=== PATIENT | male | born 1975 | race Caucasian/White ===

== ENCOUNTER 2016-10-13 16:49 | Inpatient (IN) | payer MEDICAID ==
[~2016-10-13] VITALS: Ht 152.4 cm; Wt 65.8 kg
[~2016-10-13 16:49] MED LIST: ALBU2.5V13 HHN; BISA10SU61 PR; DOCU50LI GT; HEPA50004 SUBCUT; IPRA0.2S18 HHN; MAGN400O6 GT; METO25TA20 GT; MULT473L GT; NA P133E PR; TRIH2TAB5 GT; VIT500LI GT
--- NOTE | 2016-10-13 17:00 | NUR ---
PT BIB AMBULANCE FROM [facility] . ON VENT TOLERATED. SUCTION TOLERATED. ON MONITOR VSS. PT GRIMACING ON RT FEMUR. PT PLACED ON SAFETY MEASURES AND COMFORTABLE.
--- NOTE | 2016-10-13 17:05 | NUR ---
PT PLACED INTO [address] [facility] VENT VIA TRACH SIZE 7 PORTEX WITH CUFFED. BREATH SOUNDS RHONCHI BILATERAL, SXN SMALL AMNT PALE YELLOW THICK SECRETIONS. VENT PARAMETERS BELOW SET PER EMT: AC 16 VT 550 FIO2 40% PEEP +5 AMBUBAG @ HOB Addendum: 10/13/16 at 1717 by BRITTANY MULLIGAN RT Amended: Links added.
[2016-10-13] MEDS ORDERED: IV NS 0.9% 1,000 ML BAG IV ONE (17:30)
[2016-10-13] MEDS ORDERED: MORPHINE SULFATE INJ 2 MG/ML DISP.SYRIN IV ONE (17:30)
[2016-10-13] MEDS ORDERED: ASCO500S2 GT (17:39)
[2016-10-13] MEDS ORDERED: CALC-108 GT (17:39)
[2016-10-13] MEDS ORDERED: IPRA0.2S9 IH (17:39)
[2016-10-13] MEDS ORDERED: CHLO15MO2 MM (17:39)
[2016-10-13] MEDS ORDERED: LEVO750T21 GT (17:39)
[2016-10-13] MEDS ORDERED: AMIN30LI4 GT (17:39)
[2016-10-13] MEDS ORDERED: ACID1TAB12 GT (17:39)
[2016-10-13] MEDS ORDERED: FERR220S2 GT (17:39)
[2016-10-13] MEDS ORDERED: LEVE100S GT (17:39)
[2016-10-13] MEDS ORDERED: LACT-96 GT (17:39)
[2016-10-13] MEDS ORDERED: CYAN500T4 GT (17:39)
[2016-10-13] MEDS ORDERED: ENOX40DI SQ (17:39)
[2016-10-13] MEDS ORDERED: METO5SOL2 GT (17:39)
[2016-10-13] MEDS ORDERED: ACET650S26 GT (17:39)
[2016-10-13] MEDS ORDERED: LORA0.5T GT (17:39)
[2016-10-13] MEDS ORDERED: ESOM40CA GT (17:39)
[2016-10-13] MEDS ORDERED: EPOE1VIA6 SQ (17:39)
[2016-10-13 17:42] LABS: EOSINOPHILS # (AUTO) 0.2 /CMM (0.0-0.7)
[2016-10-13 17:44] LABS: BASOPHILS % (AUTO) 0.5 % (0.0-2.0); CALCIUM, SERUM 9.5 mg/dL (8.5-10.1); CARBON DIOXIDE 28 mmol/L (21-32); CHLORIDE 98 mmol/L (98-107); CREATININE 0.7 mg/dL (0.6-1.3); EOSINOPHILS % (AUTO) 2.7 % (0.0-6.0); GFR 124 mL/min (>60); GLUCOSE 107 mg/dL (74-106); HEMATOCRIT 37 % (39-51); HEMOGLOBIN 11.9 g/dL (13.5-17.5); LYMPHOCYTES % (AUTO) 17.3 % (20.0-44.0); MEAN CORPUSCULAR HEMOGLOBIN 32 PG (26.0-33.0); MEAN CORPUSCULAR HGB CONC 32 g/dl (31.0-36.0); MEAN CORPUSCULAR VOLUME 98 fL (80-96); MONOCYTES # (AUTO) 0.3 /CMM (0.1-1.30); MONOCYTES % (AUTO) 5.2 % (2.0-12.0); NEUTROPHILS # (AUTO) 4.3 /CMM (1.8-8.9); NEUTROPHILS % (AUTO) 74.3 % (43.0-81.0); PLATELET COUNT (AUTO) 190 /CMM (150-450); POTASSIUM 4.1 mmol/L (3.5-5.1); RDW COEFFICIENT OF VARIATION 13.8 (11.5-15.0); RED BLOOD CELL COUNT(AUTO) 3.77 MIL/uL (4.5-6.0); SODIUM SERUM 134 mmol/L (136-145); UREA NITROGEN, BLOOD 21 mg/dL (7-18); WHITE BLOOD COUNT (AUTO) 5.8 K/uL (4.3-11.0)
[2016-10-13 17:50] LABS: ALANINE AMINOTRANSFERASE 20 U/L (12-78); ALBUMIN 3.7 g/dL (3.4-5.0); ALKALINE PHOSPHATASE 140 U/L (46-116); ASPARTATE AMINOTRANSFERASE 25 U/L (15-37); BILIRUBIN,DIRECT 0.2 mg/dL (0.0-0.2); BILIRUBIN,TOTAL 0.6 mg/dL (0.2-1.0); TOTAL PROTEIN, SERUM 8.7 g/dL (6.4-8.2)
[2016-10-13 17:52] LABS: TROPONIN I < 0.017 ng/mL (0.00-0.056)
[2016-10-13 18:13] LABS: INR 1.07 (0.87-1.13); PROTHROMBIN TIME 11.2 SECS (9.5-12.7)
--- NOTE | 2016-10-13 18:30 | NUR ---
IV ACCESS ABD #[id number]
[2016-10-13] MEDS ORDERED: IV NS 0.9% 1,000 ML ONE (18:31)
[2016-10-13] MEDS ORDERED: IV SET PRIMARY PUMP SET 1 EA INFUS.SET MC ONE (18:31)
[2016-10-13] MEDS ORDERED: MORPHINE SULFATE INJ 2 MG/ML DISP.SYRIN ONE (18:32)
[2016-10-13] MEDS ORDERED: MORPHINE SULFATE INJ 4 MG/ML DISP.SYRIN ONE (18:32)
--- NOTE | 2016-10-13 18:33 | NUR ---
CALLED [facility] TO READ XRAY
--- NOTE | 2016-10-13 18:50 | NUR ---
KALINA VALDOVINOS, DARIAN DE LA O STAFF MINE WARFARE OFFICER
[2016-10-13 18:52] LABS: BAND % (MANUAL) 2 % (0.0-5.0); LYMPHOCYTES % (MANUAL) 18 % (16-48); MONOCYTES % (MANUAL) 1 % (0-11.0); NEUTROPHILS % (MANUAL) 77 (42-76); PLATELET ESTIMATE ADEQUATE
--- NOTE | 2016-10-13 18:58 | NUR ---
CALLED NURSING SUP. FOR TELE BED
--- NOTE | 2016-10-13 19:02 | NUR ---
DEYA VALDOVINOS, PRICE ALLRED NP GENERAL INTERNIST
--- NOTE | 2016-10-13 19:06 | NUR ---
PT VITALS WNL NO S/SX OF PAIN. MONITOR IN PLACE. REPORT GIVEN TO CRYPTOLOGIC TECHNICIAN NURSE.
--- NOTE | 2016-10-13 19:13 | NUR ---
CALLED TO UPGRADE ROOM TO ASAEL
--- NOTE | 2016-10-13 19:24 | NUR ---
PT LEFT FOR CT WITH RT, KETTLE FIRER X2 AND MYSELF.
--- NOTE | 2016-10-13 19:29 | NUR ---
PT IS IN CT.
[2016-10-13 19:45] VITALS: BP 123/57
--- NOTE | 2016-10-13 19:48 | NUR ---
BOOGIE CHE AT THE BEDSIDE FOR EVAL OF PT.
[2016-10-13 19:55] LABS: REACTIVE LYMPHOCYTES 2 % (0-0)
--- NOTE | 2016-10-13 19:56 | NUR ---
PT HAVING ECHO DONE BEFORE CT SCAN.
--- NOTE | 2016-10-13 20:05 | NUR ---
PT ASSIGNED TO ASAEL BED 115.
--- NOTE | 2016-10-13 20:12 | NUR ---
CALLING REPORT TO TELE NURSE.
--- NOTE | 2016-10-13 20:25 | NUR ---
PT LEFT FOR CT VIA GURNEY WITH EMT, MYSELF, RT AND PROVIDER RELATIONS ADVOCATE. BAGGING IN PROGRESS.
[2016-10-13 20:30] VITALS: BP 121/83
[2016-10-13 20:40] VITALS: BP 121/83
--- NOTE | 2016-10-13 20:40 | NUR ---
ASAEL RN INITIAL NOTES RECEIVED PATIENT FROM ER. REPORT RECEIVED FROM ER NURSE SHAY. PATIENT AWAKE, NON-VERBAL, NO TRACKING. NO S/S OF PAIN OR DISCOMFORT. NOTED WITH INVOLUNTARY HEAD AND ARMS MOVEMENT. WITH VENT SETTINGS AC 16, TV 550, FIO2 40%, PEEP 5. TRACH C/D/I. NO RESPIRATORY DISTRESS NOTED. SPO2 98%. ON TELE MONITOR SINUS TACH 102. WITH GT PATENT, INTACT, IN PLACE. NOTED WITH BILATERAL FOOT DROP. BILATERAL PEDAL PULSES PALPABLE. WITH RIGHT UPPER THIGH SWELLING NOTED WITH INTERNAL ROTATION. RECEIVED PATIENT WITH NS RUNNING BY GRAVITY. IV LINE ON RIGHT LOWER ABDOMEN 20G INFILTRATED. BODY ASSESSMENT DONE. SKIN WARM AND DRY TO TOUCH. HOB ELEVATED. WIDE RAILS UP AND LOCKED. BED KEPT AT LOWEST POSITION. CALL LIGHT KEPT WITHIN EASY REACH. PENDING ADMISSION ORDERS. WILL CONTINUE TO MONITOR.
[2016-10-13] MEDS ORDERED: ZOLPIDEM TARTRATE 5 MG TABLET GT PRN (22:00)
[2016-10-13] MEDS ORDERED: ENOXAPARIN SODIUM 40 MG/0.4 ML DISP.SYRIN SQ SCH (22:00)
[2016-10-13] MEDS ORDERED: LORAZEPAM 0.5 MG TABLET GT PRN (22:00)
[2016-10-13] MEDS ORDERED: ONDANSETRON HCL/PF 4 MG/2 ML VIAL IVP PRN (22:00)
[2016-10-13] MEDS ORDERED: IPRATROPIUM NEB FS 0.5 MG/2.5 ML AMPUL.NEB HHN PRN (22:00)
[2016-10-13] MEDS ORDERED: EPOETIN ALFA (10,000 UNIT) 10,000 UNIT/ML VIAL SQ SCH (22:00)
[2016-10-13] MEDS ORDERED: Z GUARD REMEDY 2 OZ OINT TP PRN (22:00)
[2016-10-13] MEDS ORDERED: HYDROCODONE/APAP 5/325MG 1 EACH TABLET PO PRN (22:00)
--- NOTE | 2016-10-13 22:37 | NUR ---
RECEIVED NEW ORDER FOR F/C PLACEMENT, PATIENT WITH RIGHT FEMUR FRACTURE. NOTED AND CARRIED OUT. WILL CONTINUE TO MONITOR.
[2016-10-13] MEDS ORDERED: DOCUSATE SODIUM LIQ 100 MG/10 ML UDC ONE (22:54)
[2016-10-13] MEDS ORDERED: ENOXAPARIN SODIUM 40 MG/0.4 ML DISP.SYRIN SQ ONE (22:54)
--- NOTE | 2016-10-13 23:00 | NUR ---
TAPER/FINISHER NOTES ATTEMPTED TO PLACE F/C, RESISTANCE FELT, CONDOM CATHETER PLACED INSTEAD. DRAINING WELL.
[2016-10-13] MEDS ORDERED: TRIHEXYPHENIDYL HCL 2 MG TABLET ONE (23:06)
[2016-10-13] MEDS: DOCUSATE SODIUM LIQ 100 MG/10 ML UDC GT SCH (23:07)
[2016-10-13] MEDS ORDERED: FIBERSOURCE HN 1,000 ML BOTTLE ONE (23:09)
[2016-10-13] MEDS: TRIHEXYPHENIDYL HCL 2 MG TABLET GT SCH (23:14)
[2016-10-13] MEDS ORDERED: FIBERSOURCE HN 1,000 ML BOTTLE GT PRN (23:30)
[2016-10-14] VITALS (7 sets, daily range): BP systolic 109–137; BP diastolic 70–89
[2016-10-14] MEDS ORDERED: HYDROCODONE/APAP 5/325MG 1 EACH TABLET ONE (01:19)
[2016-10-14] MEDS: IPRATROPIUM NEB FS 0.5 MG/2.5 ML AMPUL.NEB IH SCH ×4 (01:30→20:12)
--- NOTE | 2016-10-14 03:48 | NUR ---
RT UNAWARE OF PT q6 TX. WILL CONTINUE WITH FOLLOWING SCHEDULE TIME. NO SOB OR DISTRESS NOTED.
[2016-10-14] MEDS ORDERED: TRIHEXYPHENIDYL HCL 2 MG TABLET ONE ×2 (06:13→21:56)
[2016-10-14] MEDS: TRIHEXYPHENIDYL HCL 2 MG TABLET GT SCH ×3 (06:36→22:37)
[2016-10-14 06:42] LABS: BASOPHILS % (AUTO) 0.5 % (0.0-2.0); EOSINOPHILS # (AUTO) 0.2 /CMM (0.0-0.7); EOSINOPHILS % (AUTO) 3.5 % (0.0-6.0); HEMATOCRIT 35 % (39-51); HEMOGLOBIN 11.7 g/dL (13.5-17.5); LYMPHOCYTES # (AUTO) 1.4 /CMM (0.8-4.8); LYMPHOCYTES % (AUTO) 25.9 % (20.0-44.0); MEAN CORPUSCULAR HEMOGLOBIN 32 PG (26.0-33.0); MEAN CORPUSCULAR HGB CONC 33 g/dl (31.0-36.0); MEAN CORPUSCULAR VOLUME 98 fL (80-96); MONOCYTES # (AUTO) 0.4 /CMM (0.1-1.30); MONOCYTES % (AUTO) 7.9 % (2.0-12.0); NEUTROPHILS # (AUTO) 3.4 /CMM (1.8-8.9); NEUTROPHILS % (AUTO) 62.2 % (43.0-81.0); PLATELET COUNT (AUTO) 204 /CMM (150-450); RDW COEFFICIENT OF VARIATION 14.4 (11.5-15.0); WHITE BLOOD COUNT (AUTO) 5.5 K/uL (4.3-11.0)
[2016-10-14 06:55] LABS: CALCIUM, SERUM 9.4 mg/dL (8.5-10.1); CREATININE 0.6 mg/dL (0.6-1.3); MAGNESIUM 1.9 mg/dL (1.8-2.4); PHOSPHORUS 3.7 mg/dL (2.5-4.9); POTASSIUM 3.8 mmol/L (3.5-5.1)
--- NOTE | 2016-10-14 06:58 | NUR ---
WEB PROJECT MANAGER CLOSING NOTES NO SIGNIFICANT CHANGES OVERNIGHT. ALL NEEDS ANTICIPATED AND MET. TOLERATED VENT SETTINGS. TOLERATED GTF. KEPT CLEAN AND DRY. TURNED AND REPOSITIONED Q2 AND PRN TOLERATED. HOB KEPT ELEVATED. NO RESPIRATORY DISTRESS NOTED. NO SOB. WARM AND DRY TO TOUCH. SIDE RAILS UP AND LOCKED. BED KEPT AT LOWEST POSITION. CALL LIGHT KEPT WITHIN EASY REACH. WILL ENDORSE CONTINUITY OF CARE TO AM NURSE.
[2016-10-14] MEDS ORDERED: FIBERSOURCE HN 1,000 ML BOTTLE GT PRN ×2 (07:27→08:00)
--- NOTE | 2016-10-14 07:30 | NUR ---
initial notes patient in bed, breathing even and unlabored with prescribed ventilator settings. opens eyes spontaneously, follows with eyes. non verbal. unable to determine if responds to name- questionable. tele monitor reading SR/ST 100. left foot iv patent with good blood return return 22g. GT feeding fibersource @ 55ml/hr infusing. GT patent 40 ml residual color of feeding.condom catheter intact. R hip bruising noted, R leg in pronation position. positioned triangle pillow for optimal comfort and functional alignment. BL soft wrist restrain on to prevent disruption of medical care. wrist skin intact. call light in reach.
[2016-10-14] MEDS ORDERED: ACETAMINOPHEN 650 MG/20.3 ML UDC GT PRN (08:00)
[2016-10-14 08:04] LABS: APPEARANCE,URINE CLEAR (CLEAR); BILIRUBIN,URINE NEGATIVE (NEGATIVE); BLOOD, URINE NEGATIVE Ery/uL (NEGATIVE); COLOR,URINE YELLOW (YELLOW); KETONES,URINE NEGATIVE (NEGATIVE); LEUKOCYTE ESTERASE ,URINE NEGATIVE (NEGATIVE); NITRITE, URINE NEGATIVE (NEGATIVE); PROTEIN,URINE 1+ mg/dl (NEGATIVE); UGLUCOSE NEGATIVE (NEGATIVE); UROBILINOGEN,URINE 0.2 EU/dL (0.2)
[2016-10-14 08:06] LABS: ADD URINE CULTURE NO; BACTERIA,URINE None seen /HPF (None Seen); RBC,URINE 0-2 /HPF (0-2); SQUAMOUS EPITHELIAL CELL,UR 0-2 /HPF (None Seen); WBC,URINE 0-2 /HPF (0-3)
[2016-10-14 08:07] LABS: MUCUS,URINE Few /LPF (None Seen); URINE AMORPHOUS URATE Few /HPF (None Seen)
[2016-10-14] MEDS: CALCIUM CARB 600MG /VIT D 1 EACH TABLET GT SCH ×2 (09:00→09:13)
[2016-10-14] MEDS: MULTIVITAMINS,THERAPEUTIC 1 UDTAB TABLET GT SCH (09:07)
[2016-10-14] MEDS: CHLORHEXIDINE GLUCONATE 15 ML UDC MM SCH ×2 (09:07→21:31)
[2016-10-14] MEDS: ACIDOPHILUS/BULGARICUS 1 EACH TAB.CHEW GT SCH (09:08)
[2016-10-14] MEDS: METOPROLOL TARTRATE 25 MG TABLET GT SCH ×2 (09:08→17:00)
[2016-10-14] MEDS: PANTOPRAZOLE 40 MG/PACK PACK GT SCH (09:08)
[2016-10-14] MEDS: ASCORBIC ACID 500 MG TABLET GT SCH (09:08)
[2016-10-14] MEDS: FERROUS SULFATE UDC 300 MG/5 ML UDC GT SCH ×3 (09:08→17:00)
[2016-10-14] MEDS: METOCLOPRAMIDE HCL 10 MG/10 ML UDC GT SCH ×3 (09:09→17:00)
[2016-10-14] MEDS: LEVETIRACETAM SOL (5 ML) 100 MG/ML UDC GT SCH ×2 (09:09→17:00)
[2016-10-14] MEDS: CYANOCOBALAMIN 500 MCG TABLET GT SCH (09:09)
--- NOTE | 2016-10-14 09:24 | NUR ---
non admin note cleared Emar for up-to-date administration schedule of medication. calcium with vit D non admin d/t repeat order.
[2016-10-14] MEDS ORDERED: NA PHOS,M-B/NA PHOS,DI-BA 1 EA ENEMA RC ONE (09:30)
[2016-10-14] MEDS ORDERED: PLATELET IV SET 1 EA INFUS.SET MC ONE (10:11)
[2016-10-14] MEDS ORDERED: IV SET PRIMARY PUMP SET 1 EA INFUS.SET MC ONE (10:11)
[2016-10-14] MEDS ORDERED: IV NS 0.9% 250 ML IV ONE (10:37)
[2016-10-14] MEDS ORDERED: SECONDARY IV SET 1 EA INFUS.SET MC ONE (10:37)
[2016-10-14] MEDS: LEVOFLOXACIN 500 MG /D5W 100ML 500 MG in PREMIX 1 EA IV SCH (11:01)
--- NOTE | 2016-10-14 15:56 | NUR ---
RN NOTES PATIENTS GTUBE DISLODGED DURING ADL CARE @ ABOUT 1500. INFORMED [place] ANSARI-PRIMARY- WHO WAS AT NURSING STATION. [place] REINSERTED 24F GT. PATIENT TOLERATED PROCEDURE. [place] GAVE VERBAL ORDER FOR STAT KUB. ORDER INPUT.
--- NOTE | 2016-10-14 16:08 | NUR ---
RN NOTES SPOKE TO DIETITIAN ABOUT RECOMMENDATIONS FOR GT FEEDING. SHE SAID 40 ML/HR FIBERSOURCE. INFORMED [place] WHO AGREED AND GAVE VERBAL ORDERS FOR FIBERSOURCE 40ML/HR X 24 HR. GT FEEDING CURRENTLY ON HOLD SINCE GT WAS DISLODGED.
[2016-10-14] MEDS ORDERED: DIATR MEGLU/DIATRIZOATE SODIUM 120 ML BOTTLE (GASTROGRAPHIN) ONE (16:20)
--- NOTE | 2016-10-14 19:34 | NUR ---
RN CLOSING NOTES HANDED OFF REPORT TO NIGHT NURSE. KUB PENDING. GT SITE CLEAN. PT BREATHING EVEN AND UNLABORED WITH MECH VENT. L FOOT IV PATENT. REPOSITIONED Q2HRS.
--- NOTE | 2016-10-14 20:32 | NUR ---
PT RECEIVED TRACH ON VENT. PT 7 ON AC MODE. PT TOLERATING VENT SETTINGS. NO RESP DISTRESS NOTED. O2 SAT 100%. B/S RH BILAT. SX FOR SML AMT OF THICK WHITE SECRETIONS. VENT ALARMS SET AND AUDIBLE. AMBU BAG AT BEDSIDE. VENT PLUGGED INTO RED OUTLET. WILL CONTINUE TO MONITOR. Addendum: 10/14/16 at 2033 by FOREIGN HAIDER RT Amended: Links added.
--- NOTE | 2016-10-14 21:13 | NUR ---
RN NOTE SPOKE WITH PRICE BOLDEN AND RECEIVED ORDERS TO RESTART GTUBE FEEDING BECAUSE KUB RESULTS SHOWED GTUBE IN THE STOMACH. READBACK PERFORMED AND CARRY OUT ORDERS.
[2016-10-14] MEDS: DOCUSATE SODIUM LIQ 100 MG/10 ML UDC GT SCH (21:31)
[2016-10-14] MEDS: ENOXAPARIN SODIUM 40 MG/0.4 ML DISP.SYRIN SQ SCH (21:42)
[2016-10-15] VITALS (7 sets, daily range): BP systolic 99–144; BP diastolic 60–122
[2016-10-15] MEDS: IPRATROPIUM NEB FS 0.5 MG/2.5 ML AMPUL.NEB IH SCH ×4 (01:54→19:32)
[2016-10-15] MEDS: TRIHEXYPHENIDYL HCL 2 MG TABLET GT SCH ×3 (05:25→21:55)
--- NOTE | 2016-10-15 08:00 | NUR ---
RN CLOSING NOTE PT REMAINS IN NO ACUTE DISTRESS IN BED. PT DID NOT HAVE ANY SIGNIFICANT CHANGE IN CONDITION DURING SHIFT. WILL ENDORSE CARE TO AM RN FOR CONTINUITY OF CARE. ALL NEEDS MET ALL ORDERS CARRIED OUT.
--- NOTE | 2016-10-15 08:00 | NUR ---
TELE1/RN AM SHIFT INITIAL NOTES RECEIVED PT AWAKE IN BED. NO ACUTE CHANGE OF CONDITION NOTED. PT OBTUNDED, OPEN EYES, NO GRIMACE NOTED. ON VENTILATOR SET AT PRESCRIBED RATES, SATURATING @ 98%, NOTED WITH DIMINISHED LUNG SOUNDS, SUCTIONED FOR AIRWAY CLEARANCE. ON TELE WITH SINUS TACHY, HR 120. WITH ON GOING GTF @ 40CC/HR, WITH NO GASTRIC RESIDUAL NOTED, FLUSHED PATENT. IV SITE PATENT WITH NO S/S OF INFECTION, ON TKO. CONDOM CATHETER INTACT WITH YELLOW URINE OUTPUT. PT IS COMFORTABLE AT THIS TIME. SCHEDULED AM MEDS TO BE GIVEN. CL WITHIN REACHED AND SAFETY MAINTAINED. ON GOING MONITORING.
[2016-10-15] MEDS: FERROUS SULFATE UDC 300 MG/5 ML UDC GT SCH ×3 (09:02→16:59)
[2016-10-15] MEDS: LEVETIRACETAM SOL (5 ML) 100 MG/ML UDC GT SCH ×2 (09:02→16:59)
[2016-10-15] MEDS: CHLORHEXIDINE GLUCONATE 15 ML UDC MM SCH ×2 (09:02→21:55)
[2016-10-15] MEDS: METOCLOPRAMIDE HCL 10 MG/10 ML UDC GT SCH ×3 (09:02→16:59)
[2016-10-15] MEDS: MULTIVITAMINS,THERAPEUTIC 1 UDTAB TABLET GT SCH (09:03)
[2016-10-15] MEDS: CYANOCOBALAMIN 500 MCG TABLET GT SCH (09:03)
[2016-10-15] MEDS: CALCIUM CARB 600MG /VIT D 1 EACH TABLET GT SCH (09:03)
[2016-10-15] MEDS: PANTOPRAZOLE 40 MG/PACK PACK GT SCH (09:03)
[2016-10-15] MEDS: ACIDOPHILUS/BULGARICUS 1 EACH TAB.CHEW GT SCH (09:03)
[2016-10-15] MEDS: METOPROLOL TARTRATE 25 MG TABLET GT SCH ×2 (09:03→16:59)
[2016-10-15] MEDS: ASCORBIC ACID 500 MG TABLET GT SCH (09:03)
[2016-10-15] MEDS: LEVOFLOXACIN 500 MG /D5W 100ML 500 MG in PREMIX 1 EA IV SCH (09:08)
--- NOTE | 2016-10-15 13:03 | NUR ---
TELE1/RN NO CONSERVATORSHIP CALLED THE [facility], RECEIVED A RETURN CALL FROM ANALY ZEPEDA (THE OFFICER OF THE DAY) VERIFIED THAT PT IS NOT ON CONSERVATORSHIP AND IF PT IS GOING FOR A PROCEDURE, (2) DOCTORS CAN SIGN FOR CONSENT. NO ACUTE CHANGE OF CONDITION NOTED. MONITORING CONTINUED.
--- NOTE | 2016-10-15 16:00 | NUR ---
TELE1/RN AFTERNOON ROUNDS PM CARE PROVIDED, NO CHANGE OF CONDITION. MONITORING CONTINUED.
--- NOTE | 2016-10-15 19:30 | NUR ---
RN INITIAL NOTE RECEIVED PT IN NO ACUTE DISTRESS IN BED. PT IS OBTUNDED AND OPENS EYES, BUT IS NON VERBAL. PT IS ON MECHANICAL VENT VIA TRACH. TRACH SITE IS CLEAN DRY AND INTACT. PT TOLERATING VENT SETTING WELL. PT IS ON TELE WITH ST ON THE MONITOR. PT HAS CONDOM CATH THAT IS CLEAN DRY INTACT AND PATENT WITH YELLOW URINE DRAINING. PT HAS GTUBE THAT IS CLEAN DRY INTACT AND PATENT WITH FIBERSOURCE @ 40ML/HR AND TOLERATING WELL WITH 20ML RESIDUAL. PT HAS L FOOT 22G THAT IS CLEAN DRY INTACT AND PATENT WITH NS @ TKO. BED IN LOW LOCK POSITION WITH RAILS UP X 2. CALL LIGHT WITHIN REACH AND ALL SAFETY MEASURES ENSURED AND CARRIED OUT. WILL CONTINUE TO MONITOR PT.
--- NOTE | 2016-10-15 19:41 | NUR ---
TELE1/RN AM SHIFT END NOTES ALL NEEDS PROVIDED. NO ACUTE CHANGE OF CONDITION NOTED DURING THE SHIFT. PT ENDORSED TO PM NURSE TO CONTINUE CARE. CL WITHIN REACHED AND SAFETY MAINTAINED.
[2016-10-15] MEDS: DOCUSATE SODIUM LIQ 100 MG/10 ML UDC GT SCH (21:55)
[2016-10-15] MEDS: ENOXAPARIN SODIUM 40 MG/0.4 ML DISP.SYRIN SQ SCH (21:56)
[2016-10-16] VITALS: BP 103/60
[2016-10-16] MEDS: IPRATROPIUM NEB FS 0.5 MG/2.5 ML AMPUL.NEB IH SCH ×4 (01:40→20:11)
[2016-10-16 04:00] VITALS: BP 101/64
[2016-10-16] MEDS: TRIHEXYPHENIDYL HCL 2 MG TABLET GT SCH ×3 (05:33→21:42)
--- NOTE | 2016-10-16 06:51 | NUR ---
RN CLOSING NOTE PT REMAINS IN NO ACUTE DISTRESS IN BED. PT DID NOT HAVE ANY SIGNIFICANT CHANGE IN CONDITION DURING SHIFT. ALL NEEDS MET ALL ORDERS CARRIED OUT. ALL SAFETY MEASURES ENSURED AND CARRIED OUT. WILL ENDORSE TO AM RN FOR CONTINUITY OF CARE.
--- NOTE | 2016-10-16 07:17 | NUR ---
Received male jimy pt on a mechanical vent. Pt jimy is secure. Vent is plugged into a red outlet. Alarms are set and audible. Ambu bag is at head of bed. Addendum: 10/16/16 at 0718 by WILBERT CROWLEY RT Amended: Links added.
[2016-10-16 08:00] VITALS: BP 144/85
[2016-10-16] MEDS: PANTOPRAZOLE 40 MG/PACK PACK GT SCH (09:00)
[2016-10-16] MEDS: MULTIVITAMINS,THERAPEUTIC 1 UDTAB TABLET GT SCH (09:00)
[2016-10-16] MEDS: CHLORHEXIDINE GLUCONATE 15 ML UDC MM SCH ×2 (09:00→21:42)
[2016-10-16] MEDS: LEVETIRACETAM SOL (5 ML) 100 MG/ML UDC GT SCH ×2 (09:00→16:50)
[2016-10-16] MEDS: ACIDOPHILUS/BULGARICUS 1 EACH TAB.CHEW GT SCH (09:00)
[2016-10-16] MEDS: METOPROLOL TARTRATE 25 MG TABLET GT SCH ×2 (09:00→16:51)
[2016-10-16] MEDS: FERROUS SULFATE UDC 300 MG/5 ML UDC GT SCH ×3 (09:00→16:49)
[2016-10-16] MEDS: CALCIUM CARB 600MG /VIT D 1 EACH TABLET GT SCH (09:00)
[2016-10-16] MEDS: CYANOCOBALAMIN 500 MCG TABLET GT SCH (09:00)
[2016-10-16] MEDS: METOCLOPRAMIDE HCL 10 MG/10 ML UDC GT SCH ×3 (09:00→16:53)
[2016-10-16] MEDS: ASCORBIC ACID 500 MG TABLET GT SCH (09:00)
[2016-10-16] MEDS: LEVOFLOXACIN 500 MG /D5W 100ML 500 MG in PREMIX 1 EA IV SCH (10:51)
--- NOTE | 2016-10-16 11:43 | NUR ---
WOUND CARE CONSULT: PT PRESENTS WITH IMMOBILITY, INCONTINENCE AND SOME SWELLING TO RT HIP AREA. DRY SCRATCHES NOTED TO RT THIGH, PRESENT ON ADMISSION WELL SOME FADING BRUISES TO CHEST NEAR UNDERARM AREAS. ALL SKIN PROTECTION RECOMMENDATIONS MADE AND DISCUSSED WITH NURSING STAFF. PT TO BE PLACED ON FIRST STEP MATTRESS. PT TO BE TURNED AND REPOSITIONED EVERY 2 HRS PT CONDITION PERMITS, HEELS FLOATED. MD IN AGREEMENT WITH PLAN OF CARE. WILL SEE PRN. Addendum: 10/16/16 at 1145 by SARAH BISHOP WNDNU Amended: Links added.
[2016-10-16 12:00] VITALS: BP 112/76
[2016-10-16] MEDS: EPOETIN ALFA (4000 UNIT) 4,000 UNIT/ML VIAL SQ SCH (15:00)
[2016-10-16 16:00] VITALS: BP 133/77
[2016-10-16] MEDS: HYDROCODONE/APAP 5/325MG 1 EACH TABLET GT PRN (16:51)
--- NOTE | 2016-10-16 19:09 | NUR ---
RN CLOSING NOTE PT REMAINED STABLE WITHIN THE SHIFT, HAD HIDA SCAN, PT WAS UNCOMFORTABLE, HR 125 BPM, MEDS GIVEN AFTER THE TEST, FEEDING RESTARTED, NEEDS MET, SAFETY MAINTAINED, WILL ENDORSE TO INSPECTOR SCREEN PRINTING NURSE.
--- NOTE | 2016-10-16 19:45 | NUR ---
RN NOTES RECEIVED PT WITH EYES OPEN ON BED. WITH TRACH PORTEX 7 CONNECTED TO VENT SETTING OF AC 16 TV 550 FIO2 40% WITH PEEP 5 INTACT AND PATENT SATING 100%. NO FACIAL COMPLAIN OF PAIN. WITH GTF FIBERSOURCE @ 40 CC/HR TOLERATED WELL WITHOUT N.V.D.. PATENCY CHECKED IV SITE ON LEFT FOOT G 22 INTACT AND PATENT. RESTRAINT BWR INTACT CIRCULATION CHECKED. FOR SAFETY MEASURES. KEPT PT CELAN AND COMFORTABLE IN BED. OFFLOADED EXT WITH PILLOWS. SKIN CARE PROVIDED. WILL CONTINUE TO MONITOR.
[2016-10-16 20:00] VITALS: BP 118/83
--- NOTE | 2016-10-16 20:41 | NUR ---
pt received on vent via trach portex 7, settings as charted ambu bag at bedside alarms set and audible suctioned a small amount of thick yellow secretions breath sounds equal bilateral coarse pt receiving atrovent q6 Addendum: 10/16/16 at 2043 by DARRYL WING RT Amended: Links added.
[2016-10-16] MEDS: DOCUSATE SODIUM LIQ 100 MG/10 ML UDC GT SCH (21:42)
[2016-10-16] MEDS: ENOXAPARIN SODIUM 40 MG/0.4 ML DISP.SYRIN SQ SCH (21:43)
[2016-10-17] VITALS (7 sets, daily range): BP systolic 109–140; BP diastolic 48–93
[2016-10-17] MEDS: IPRATROPIUM NEB FS 0.5 MG/2.5 ML AMPUL.NEB IH SCH ×4 (02:14→19:40)
[2016-10-17] MEDS: TRIHEXYPHENIDYL HCL 2 MG TABLET GT SCH ×3 (05:51→21:07)
[2016-10-17 07:03] LABS: BASOPHILS % (AUTO) 0.2 % (0.0-2.0); EOSINOPHILS # (AUTO) 0.2 /CMM (0.0-0.7); EOSINOPHILS % (AUTO) 3.6 % (0.0-6.0); HEMATOCRIT 30 % (39-51); HEMOGLOBIN 10.3 g/dL (13.5-17.5); LYMPHOCYTES # (AUTO) 1.1 /CMM (0.8-4.8); LYMPHOCYTES % (AUTO) 17.5 % (20.0-44.0); MEAN CORPUSCULAR HEMOGLOBIN 33 PG (26.0-33.0); MEAN CORPUSCULAR HGB CONC 34 g/dl (31.0-36.0); MEAN CORPUSCULAR VOLUME 97 fL (80-96); MONOCYTES # (AUTO) 0.4 /CMM (0.1-1.30); MONOCYTES % (AUTO) 5.9 % (2.0-12.0); NEUTROPHILS # (AUTO) 4.6 /CMM (1.8-8.9); NEUTROPHILS % (AUTO) 72.8 % (43.0-81.0); PLATELET COUNT (AUTO) 173 /CMM (150-450); RDW COEFFICIENT OF VARIATION 13.8 (11.5-15.0); RED BLOOD CELL COUNT(AUTO) 3.07 MIL/uL (4.5-6.0); WHITE BLOOD COUNT (AUTO) 6.4 K/uL (4.3-11.0)
[2016-10-17 07:16] LABS: CALCIUM, SERUM 9.1 mg/dL (8.5-10.1); CREATININE 0.5 mg/dL (0.6-1.3); POTASSIUM 3.1 mmol/L (3.5-5.1)
[2016-10-17] MEDS: LEVETIRACETAM SOL (5 ML) 100 MG/ML UDC GT SCH ×2 (09:50→17:08)
[2016-10-17] MEDS: FERROUS SULFATE UDC 300 MG/5 ML UDC GT SCH ×3 (09:51→17:08)
[2016-10-17] MEDS: CALCIUM CARB 600MG /VIT D 1 EACH TABLET GT SCH (09:51)
[2016-10-17] MEDS: MULTIVITAMINS,THERAPEUTIC 1 UDTAB TABLET GT SCH (09:51)
[2016-10-17] MEDS: CHLORHEXIDINE GLUCONATE 15 ML UDC MM SCH ×2 (09:51→20:10)
[2016-10-17] MEDS: PANTOPRAZOLE 40 MG/PACK PACK GT SCH (09:51)
[2016-10-17] MEDS: LEVOFLOXACIN (500MG) 500 MG TABLET GT SCH (09:51)
[2016-10-17] MEDS: ACIDOPHILUS/BULGARICUS 1 EACH TAB.CHEW GT SCH (09:51)
[2016-10-17] MEDS: ASCORBIC ACID 500 MG TABLET GT SCH (09:51)
[2016-10-17] MEDS: METOCLOPRAMIDE HCL 10 MG/10 ML UDC GT SCH ×3 (09:51→17:08)
[2016-10-17] MEDS: CYANOCOBALAMIN 500 MCG TABLET GT SCH (09:51)
[2016-10-17] MEDS: METOPROLOL TARTRATE 25 MG TABLET GT SCH ×2 (09:52→17:09)
[2016-10-17] MEDS: POTASSIUM CHLORIDE 20 MEQ POWDER PACKET GT SCH ×2 (12:37→20:11)
[2016-10-17] MEDS ORDERED: POTASSIUM CHLORIDE 20 MEQ POWDER PACKET GT SCH (15:00)
[2016-10-17] MEDS: FIBERSOURCE HN 1,000 ML BOTTLE GT PRN (17:16)
--- NOTE | 2016-10-17 19:30 | NUR ---
RN INITIAL NOTES RECEIVED PT AWAKE ON BED, OBTUNDED, OPENS EYES ONLY. ON VENT, AC 16, TV 550, 40% FIO2, PEEP 5, PORTEX 7, SATURATING WELL. CURRENTLY SR ON THE MONITOR, HR 80-90'S. ON DIAPERS ONLY. GT FEEDING OF FIBERSOURCE 40MLS/HR, NO RESIDUALS, TOLERATING WELL. LEFT FOOT 22G SL FLUSHED AND PATENT, NO S/S OF INFILTRATION/INFECTION, DRESSING CDI. BED LOW AND LOCKED, SIDERAILS UP, RIGHT SOFT WRIST RESTRAINTS IN PLACE. WILL MONITOR
[2016-10-17] MEDS: ENOXAPARIN SODIUM 40 MG/0.4 ML DISP.SYRIN SQ SCH (20:14)
[2016-10-17] MEDS: DOCUSATE SODIUM LIQ 100 MG/10 ML UDC GT SCH (21:07)
--- NOTE | 2016-10-17 21:25 | NUR ---
PT RECEIVED TRACH ON VENT. PT TOLERATING VENT SETTINGS. SX'D FOR MOD AMT OF THICK WHITE SECRETIONS. VENT ALARMS SET AND AUDIBLE. AMBU BAG AT BEDSIDE. VENT PLUGGED INTO RED OUTLET. WILL CONTINUE TO MONITOR. Addendum: 10/17/16 at 2127 by FOREIGN HAIDER RT Amended: Links added.
[2016-10-18] VITALS (7 sets, daily range): BP systolic 105–152; BP diastolic 56–84
[2016-10-18] MEDS: IPRATROPIUM NEB FS 0.5 MG/2.5 ML AMPUL.NEB IH SCH ×4 (01:00→19:56)
[2016-10-18] MEDS: TRIHEXYPHENIDYL HCL 2 MG TABLET GT SCH ×3 (06:07→21:29)
--- NOTE | 2016-10-18 06:30 | NUR ---
RN CLOSING NOTES PT REMAINS STABLE OF THE MOMENT. ALL DUE MEDS GIVEN, AM CARE PROVIDED. WILL ENDORSE CONTINUITY OF CARE TO AM RN
[2016-10-18 07:15] LABS: CREATININE 0.5 mg/dL (0.6-1.3); POTASSIUM 4.2 mmol/L (3.5-5.1)
--- NOTE | 2016-10-18 07:33 | NUR ---
RN NOTES RECEIVED PT IN BED. OBTUNDED WITH EYES OPEN. IN NO RESPIRATORY DISTRESS. RESPIRATIONS EVEN AND UNLABORED ON ORDERED VENT SETTINGS. PT WITH RIGHT ARM RESTRAINT DUE TO ATTEMPTS ON PULLING OUT TUBES; SKIN CHECK DONE- NO BREAKDOWN NOTED. WILL CONTINUE TO MONITOR
[2016-10-18] MEDS: LEVETIRACETAM SOL (5 ML) 100 MG/ML UDC GT SCH ×2 (08:26→16:24)
[2016-10-18] MEDS: CHLORHEXIDINE GLUCONATE 15 ML UDC MM SCH ×2 (08:26→21:28)
[2016-10-18] MEDS: FERROUS SULFATE UDC 300 MG/5 ML UDC GT SCH ×3 (08:26→16:24)
[2016-10-18] MEDS: METOCLOPRAMIDE HCL 10 MG/10 ML UDC GT SCH ×3 (08:26→16:24)
[2016-10-18] MEDS: CALCIUM CARB 600MG /VIT D 1 EACH TABLET GT SCH (08:26)
[2016-10-18] MEDS: ASCORBIC ACID 500 MG TABLET GT SCH (08:26)
[2016-10-18] MEDS: CYANOCOBALAMIN 500 MCG TABLET GT SCH (08:27)
[2016-10-18] MEDS: MULTIVITAMINS,THERAPEUTIC 1 UDTAB TABLET GT SCH (08:27)
[2016-10-18] MEDS: ACIDOPHILUS/BULGARICUS 1 EACH TAB.CHEW GT SCH (08:27)
[2016-10-18] MEDS: PANTOPRAZOLE 40 MG/PACK PACK GT SCH (08:27)
[2016-10-18] MEDS: LEVOFLOXACIN (500MG) 500 MG TABLET GT SCH (08:27)
[2016-10-18] MEDS: METOPROLOL TARTRATE 25 MG TABLET GT SCH ×2 (08:27→16:33)
--- NOTE | 2016-10-18 13:00 | NUR ---
RN NOTES PT SEEN AND EXAMINED BY [place] ANSARI NP- NO NEW ORDERS. STATED THAT PT FOR POSSIBLE D/C IN AM. NOTED. WILL CONTINUE TO MONITOR
[2016-10-18] MEDS: EPOETIN ALFA (4000 UNIT) 4,000 UNIT/ML VIAL SQ SCH (15:25)
[2016-10-18] MEDS: FIBERSOURCE HN 1,000 ML BOTTLE GT PRN (16:25)
--- NOTE | 2016-10-18 18:00 | NUR ---
RN NOTES PT IN BED. OBTUNDED. IN NO APPARENT DISTRESS. RESPIRATIONS EVEN AND UNLABORED. TOLERATED ALL MEDS AND TREATMENTS THIS SHIFT. WILL ENDORSE TO ONCOMING SHIFT
--- NOTE | 2016-10-18 20:40 | NUR ---
received pt from day shift, alert, does not follow commands, SR, on the vent, lungs congested, edema pitting/non pitting all extremities, diaper on, GT to feeding tolerates well, restraints on, v/s stable, no pain, pt turned and repositioned.
[2016-10-18] MEDS: DOCUSATE SODIUM LIQ 100 MG/10 ML UDC GT SCH (21:28)
[2016-10-18] MEDS: ENOXAPARIN SODIUM 40 MG/0.4 ML DISP.SYRIN SQ SCH (21:30)
[2016-10-19] VITALS: BP 124/92
[2016-10-19] MEDS: IPRATROPIUM NEB FS 0.5 MG/2.5 ML AMPUL.NEB IH SCH ×4 (02:05→20:04)
[2016-10-19 04:00] VITALS: BP 131/87
--- NOTE | 2016-10-19 04:16 | NUR ---
pt is resting in the bed, no acute distress overnight, v/s stable, no pain, tolerates feeding, pt cleaned, changed and repositioned q2hrs.
[2016-10-19] MEDS: TRIHEXYPHENIDYL HCL 2 MG TABLET GT SCH ×3 (05:08→21:18)
[2016-10-19 06:47] LABS: CALCIUM, SERUM 9.1 mg/dL (8.5-10.1); CREATININE 0.5 mg/dL (0.6-1.3); POTASSIUM 3.9 mmol/L (3.5-5.1)
--- NOTE | 2016-10-19 07:15 | NUR ---
RN INITIAL NOTES: Rec'd pt awake on bed, HOB elevated, not in any distress. Pt on MV via trache portex 7, AC 16, TV 550, PEEP 5, saturating well. On telemonitor ST at 110's. On continuous GT feeding, tolerating well, no residual upon checking. Has R hand, 1 pt soft restraint. Has L foot G22 SL, patent, C/D/I, no signs of infection/ infiltration noted. Provided comfort & safety measures. Call light placed w/in reached. Bed kept low & in locked position. Will continue to monitor.
[2016-10-19 08:00] VITALS: BP 124/77
[2016-10-19] MEDS: FERROUS SULFATE UDC 300 MG/5 ML UDC GT SCH ×3 (09:05→17:17)
[2016-10-19] MEDS: METOCLOPRAMIDE HCL 10 MG/10 ML UDC GT SCH ×3 (09:05→17:17)
[2016-10-19] MEDS: CHLORHEXIDINE GLUCONATE 15 ML UDC MM SCH ×2 (09:05→21:18)
[2016-10-19] MEDS: LEVETIRACETAM SOL (5 ML) 100 MG/ML UDC GT SCH ×2 (09:05→17:17)
[2016-10-19] MEDS: PANTOPRAZOLE 40 MG/PACK PACK GT SCH (09:06)
[2016-10-19] MEDS: ACIDOPHILUS/BULGARICUS 1 EACH TAB.CHEW GT SCH (09:06)
[2016-10-19] MEDS: METOPROLOL TARTRATE 25 MG TABLET GT SCH ×2 (09:06→17:17)
[2016-10-19] MEDS: LEVOFLOXACIN (500MG) 500 MG TABLET GT SCH (09:06)
[2016-10-19] MEDS: CALCIUM CARB 600MG /VIT D 1 EACH TABLET GT SCH (09:06)
[2016-10-19] MEDS: MULTIVITAMINS,THERAPEUTIC 1 UDTAB TABLET GT SCH (09:06)
[2016-10-19] MEDS: ASCORBIC ACID 500 MG TABLET GT SCH (09:06)
[2016-10-19] MEDS: CYANOCOBALAMIN 500 MCG TABLET GT SCH (09:06)
[2016-10-19 12:00] VITALS: BP 122/76
[2016-10-19 16:00] VITALS: BP 146/75
[2016-10-19] MEDS: FIBERSOURCE HN 1,000 ML BOTTLE GT PRN (18:19)
--- NOTE | 2016-10-19 18:28 | NUR ---
RN CLOSING NOTES: Pt remained stable, not in any distress. Tolerated MV settings, no desaturation. Suctioned secretions as needed. GT feeding tolerated well. Turning & repositioning, offloading of heels done. Safety measures provided. Kept dry, warm & comfortable. L foot IV line, patent, C/D/I, no signs of infection/ infiltration noted. Will endorse to PM shift for RAKESH.
[2016-10-19 20:00] VITALS: BP 129/80
[2016-10-19] MEDS: DOCUSATE SODIUM LIQ 100 MG/10 ML UDC GT SCH (21:18)
[2016-10-19] MEDS: ENOXAPARIN SODIUM 40 MG/0.4 ML DISP.SYRIN SQ SCH (21:19)
[2016-10-20] VITALS: BP 131/77
[2016-10-20] MEDS: IPRATROPIUM NEB FS 0.5 MG/2.5 ML AMPUL.NEB IH SCH ×4 (01:29→19:55)
[2016-10-20 04:00] VITALS: BP 132/81
[2016-10-20] MEDS: TRIHEXYPHENIDYL HCL 2 MG TABLET GT SCH ×3 (05:00→21:29)
[2016-10-20 06:36] LABS: CALCIUM, SERUM 9.3 mg/dL (8.5-10.1); CREATININE 0.5 mg/dL (0.6-1.3); POTASSIUM 3.7 mmol/L (3.5-5.1)
--- NOTE | 2016-10-20 06:36 | NUR ---
RN CLOSING NOTE PT REMAINS IN NO ACUTE DISTRESS IN BED. PT DID NOT HAVE ANY SIGNIFICANT CHANGE IN CONDITION DURING SHIFT. PT TOLERATED VENT SETTING WELL. WILL ENDORSE CARE TO AM RN FOR CONTINUITY OF CARE. ALL NEEDS MET ALL ORDERS CARRIED OUT.
--- NOTE | 2016-10-20 07:24 | NUR ---
RT PATIENT REC'D TRACHED ON [facility] VENT WITH SETTINGS SET PER MD TOLERATED WELL. VENT ALARMS CHECKED + AUDIBLE. TRACH SECURE + IN PROPER POSITION. PATIENT APPEARS COMFORTABLE AND IN NO DISTRESS. SX'D WITH SMALL AMT PALE SEMI-THICK SECRETIONS. B/S DIM COARSE. AMBU BAG AT [facility]. Addendum: 10/20/16 at 0843 by CANDICE MEIER RT Amended: Links added.
--- NOTE | 2016-10-20 07:30 | NUR ---
RN INITIAL NOTES RECEIVED PT ON BED, NO SOB, NO DISTRESS NOTED, OBTUNDED, OPENS EYES, ON MECH VENT WITH ORDERED SETTINGS, SATURATION 99%, ON TELE MONITOR, ST 111, IV IN LEFT DORSAL FOOT 22 G SL, G TUBE FEEDING RUNNING AT 40 ML/H, BED RAILS UP X3, R HAND IN RESTRAINT, CALL LIGHT WITHIN REACH, WILL CONTINUE TO MONITOR.
[2016-10-20 08:00] VITALS: BP 145/98
[2016-10-20] MEDS: ASCORBIC ACID 500 MG TABLET GT SCH (08:41)
[2016-10-20] MEDS: FERROUS SULFATE UDC 300 MG/5 ML UDC GT SCH ×3 (08:41→16:16)
[2016-10-20] MEDS: CYANOCOBALAMIN 500 MCG TABLET GT SCH (08:41)
[2016-10-20] MEDS: METOCLOPRAMIDE HCL 10 MG/10 ML UDC GT SCH ×3 (08:41→16:18)
[2016-10-20] MEDS: ACIDOPHILUS/BULGARICUS 1 EACH TAB.CHEW GT SCH (08:41)
[2016-10-20] MEDS: LEVOFLOXACIN (500MG) 500 MG TABLET GT SCH (08:41)
[2016-10-20] MEDS: CHLORHEXIDINE GLUCONATE 15 ML UDC MM SCH ×2 (08:41→21:29)
[2016-10-20] MEDS: MULTIVITAMINS,THERAPEUTIC 1 UDTAB TABLET GT SCH (08:41)
[2016-10-20] MEDS: CALCIUM CARB 600MG /VIT D 1 EACH TABLET GT SCH (08:41)
[2016-10-20] MEDS: LEVETIRACETAM SOL (5 ML) 100 MG/ML UDC GT SCH ×2 (08:41→16:17)
[2016-10-20] MEDS: PANTOPRAZOLE 40 MG/PACK PACK GT SCH (08:41)
[2016-10-20] MEDS: METOPROLOL TARTRATE 25 MG TABLET GT SCH ×2 (08:42→16:19)
[2016-10-20 12:00] VITALS: BP 119/83
[2016-10-20 14:33] LABS: HEMOGLOBIN 10.3 g/dL (13.5-17.5)
[2016-10-20 16:00] VITALS: BP 117/73
[2016-10-20] MEDS: EPOETIN ALFA (4000 UNIT) 4,000 UNIT/ML VIAL SQ SCH (16:16)
[2016-10-20] MEDS: HYDROCODONE/APAP 5/325MG 1 EACH TABLET GT PRN (16:20)
--- NOTE | 2016-10-20 18:54 | NUR ---
RN CLOSING NOTE PT REMAINED STABLE, ALL MEDS GIVEN ORDERED, NEEDS MET, SAFETY MAINTAINED, PT BEING DISCHARGED TO FACILITY ([facility]), AROUND 2100, WILL ENDORSE TO MACHINE LACER NURSE.
--- NOTE | 2016-10-20 19:30 | NUR ---
RN INITIAL NOTES RECEIVED REPORT FROM AM NURSE, PATIENT IS TO BE DISCHARGE BACK TO SNF ORDERED. D/C PAPERS PREPARED AND PLACED IN CHART. PICTURES TAKEN AND FILED IN CHART. PER AM NURSE, SHE HAS GIVEN REPORT TO ROSA MARCOS FROM [facility]. RECEIVED PATIENT IN BED, AWAKE, EYES OPEN, NONVERBAL. ON MECH VENT VIA TRACH. SR ON TELE AT 92. NO DISTRESS. GTF TOLERATING WELL, NO GASTRIC RESIDUAL, GTUBE FLUSHED AND KEPT PATENT. LEFT FOOT G22, FLUSHED AND KEPT PATENT, WILL REMOVE UPON D/C. WITH R HAND SOFT WRIST RESTRAINTS, IN PLACE, SKIN INTEGRITY CHECKED AND INTACT, ENSURED ADEQUATE CIRCULATION. PATIENT'S NEEDS ANTICIPATED AND MET. SAFETY AND COMFORT ENSURED. BED IN LOW AND LOCKED POSITION. HOB ELEVATED. WILL MONITOR.
[2016-10-20 20:00] VITALS: BP 113/78
[2016-10-20] MEDS ORDERED: ENOXAPARIN SODIUM 40 MG/0.4 ML DISP.SYRIN SQ SCH (21:00)
[2016-10-20] MEDS: DOCUSATE SODIUM LIQ 100 MG/10 ML UDC GT SCH (21:29)
--- NOTE | 2016-10-20 21:30 | NUR ---
RN NOTES PATIENT GIVEN BEDBATH, KEPT CLEAN AND DRY. WOUND TREATMENT RENDERED ORDERED. AIRWAY SUCTIONED, KEPT PATENT. REMAINS SR AT 90s. TURNED AND REPOSITIONED. SAFETY AND COMFORT ENSURED. GTUBE FLUSHED, TOLERATED WELL. ALL DUE MEDS GIVEN ORDERED.
--- NOTE | 2016-10-20 22:45 | NUR ---
RN NOTES REPORT GIVEN TO RT AND EMT FROM [facility]. D/C PAPERS ENDORSED ACCORDINGLY. AIRWAY KEPT PATENT. R FOOT IV ACCESS REMOVED, PRESSURE DRESSING APPLIED. GTUBE FLUSHED AND CLAMPED. TELE BOX REMOVED, PATIENT WAS MAINTAINED ON SR AT 92. PATIENT LEFT UNIT IN A STABLE CONDITION, VIA GURNEY WITH RT AND 2 SOCK BOARDER AT BEDSIDE.
== END 2016-10-20 22:46 | DRG 130 ==
LOC: ER 16:52 → TELE1 20:06
PROVIDERS: ADMIT Nurse Practitioner Acute Care; ATTEND Nurse Practitioner Acute Care
PROC: 5A1955Z Respiratory Ventilation, Greater than 96 Consecutive Hours (ICD-10-PCS; principal; 2016-10-13)
PROC: 0D20XUZ Change Feeding Device in Upper Intestinal Tract, External Approach (ICD-10-PCS; 2016-10-14)
DX: J15.6 Pneumonia due to other Gram-negative bacteria (principal); G93.40 Encephalopathy, unspecified; L89.151 Pressure ulcer of sacral region, stage 1; R53.2 Functional quadriplegia; J96.11 Chronic respiratory failure with hypoxia; D68.59 Other primary thrombophilia; R13.10 Dysphagia, unspecified; M84.451A Pathological fracture, right femur, initial encounter for fracture; J15.9 Unspecified bacterial pneumonia; Z99.11 Dependence on respirator [ventilator] status; G35 Multiple sclerosis; G80.9 Cerebral palsy, unspecified; G40.909 Epilepsy, unspecified, not intractable, without status epilepticus; I10 Essential (primary) hypertension; E87.6 Hypokalemia; E87.1 Hypo-osmolality and hyponatremia; D63.8 Anemia in other chronic diseases classified elsewhere; G20 Parkinson's disease; K21.9 Gastro-esophageal reflux disease without esophagitis; K76.9 Liver disease, unspecified; K80.20 Calculus of gallbladder without cholecystitis without obstruction; M41.85 Other forms of scoliosis, thoracolumbar region; Z93.1 Gastrostomy status; Z74.01 Bed confinement status; K40.20 Bilateral inguinal hernia, without obstruction or gangrene, not specified as recurrent; M85.80 Other specified disorders of bone density and structure, unspecified site
CPT/HCPCS: 31720; 36415; 71010-TC; 73550-TC; 73700-TC; 74000-TC; 78226; 80048-TC; 80061-TC; 80076-TC; 81000-TC; 83735-TC; 84100-TC; 84484-TC; 85025-TC; 85027-TC; 85730-TC; 87081-TC; 93971-TC; 94003-TC; 94760-TC; 99082-TC; A4216; A4349; A4606; A6402; A6403; A9537; J0885; J1650; J1953; J1956; J2270; J7030; J7050; J8597; Q9963; Z7610